=== PATIENT | male | born 1980 | race African-American/Black ===

== ENCOUNTER 2018-03-18 07:15 | Emergency (ER) | payer OTHER ==
[~2018-03-18] VITALS: Ht 198.1 cm; Wt 79.4 kg
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
[2018-03-18 07:51] VITALS: BP 108/76
[2018-03-18 08:29] VITALS: BP 108/76
== END 2018-03-18 08:31 | disposition left against medical advice (07) ==
LOC: EDBD 07:15 → EMR 07:55
DX: F15.10 Other stimulant abuse, uncomplicated (principal)
CPT/HCPCS: 99283

== ENCOUNTER 2018-06-01 13:39 | Emergency (ER) | payer OTHER ==
[~2018-06-01] VITALS: Ht 185.4 cm; Wt 81.6 kg
[~2018-06-01 13:39] MED LIST: UNOBMED
--- NOTE | 2018-06-01 13:43 | NUR ---
ED Nurse Note: Patient brought in by [id number] with [employer] from assisted lived [facility], c/o behavior complaint, appears to hear auditory hallucination because patient is talking by himself. Patient is alert and awake to his name and time, place. patient denies any SI/HI. follows direction at this time.
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
[2018-06-01 14:11] LABS: BASOPHILS % (AUTO) 1.2 % (0.0-2.0); EOSINOPHILS % (AUTO) 1.8 % (0.0-3.0); HEMATOCRIT 41.7 % (42.0-52.0); HEMOGLOBIN 13.4 G/DL (14.2-18.0); LYMPHOCYTES % (AUTO) 28.3 % (20.0-45.0); MEAN CORPUSCULAR VOLUME 91 FL (80-99); MONOCYTES % (AUTO) 11.2 % (1.0-10.0); NEUTROPHILS % (AUTO) 57.6 % (45.0-75.0); PLATELET COUNT 359 K/UL (150-450); RED BLOOD COUNT 4.56 M/UL (4.70-6.10); WHITE BLOOD COUNT 5.7 K/UL (4.8-10.8)
[2018-06-01 14:20] VITALS: BP 146/87
[2018-06-01 14:25] LABS: ANION GAP 8 mmol/L (5-15); BLOOD UREA NITROGEN 18 mg/dL (7-18); CALCIUM 9.3 MG/DL (8.5-10.1); CARBON DIOXIDE 27 MMOL/L (21-32); CHLORIDE 105 MMOL/L (98-107); CREATININE 1.2 MG/DL (0.55-1.30); POTASSIUM 3.7 MMOL/L (3.5-5.1); SODIUM 140 MMOL/L (136-145)
[2018-06-01] MEDS ORDERED: Haloperidol 5mg/ml Inj IM ONE (14:30)
[2018-06-01 14:32] LABS: ALANINE AMINOTRANSFERASE 30 U/L (12-78); ALBUMIN 3.5 G/DL (3.4-5.0); ALBUMIN/GLOBULIN RATIO 0.8 (1.0-2.7); ALKALINE PHOSPHATASE 108 U/L (46-116); ASPARTATE AMINO TRANSFERASE 30 U/L (15-37); BILIRUBIN,TOTAL 0.7 MG/DL (0.2-1.0)
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
[2018-06-01 15:33] LABS: APPEARANCE,URINE CLEAR; BILIRUBIN, URINE NEGATIVE (NEGATIVE); COLOR,URINE PALE YELLOW; GLUCOSE, URINE (UA) NEGATIVE (NEGATIVE); KETONES,URINE NEGATIVE (NEGATIVE); LEUKOCYTE ESTERASE ,URINE NEGATIVE (NEGATIVE); NITRITE,URINE NEGATIVE (NEGATIVE); PH,URINE 6.5 (4.5-8.0); PROTEIN,URINE 1+ (NEGATIVE); UROBILINOGEN,URINE NORMAL MG/DL (0.0-1.0)
--- NOTE | 2018-06-01 15:51 | NUR ---
ED Nurse Note: sitter by the bedside. patient is resting in bed covered with all blankets.
[2018-06-01 18:31] VITALS: BP 124/82
--- NOTE | 2018-06-01 19:08 | NUR ---
HAND-OFF: Report given to Javi ESTEBAN. patient stable in bed
--- NOTE | 2018-06-01 19:10 | NUR ---
ED Nurse Note: Received Pt and report from day shift. Knowing Pt is 5150 hold, sitter is on bedside. Pt is Asleep when visited, VSS.
[2018-06-01 21:00] VITALS: BP 120/86
[2018-06-01 21:30] VITALS: BP 120/86
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
== END 2018-06-01 21:30 ==
LOC: EDBD 13:39 → EMR 14:12
DX: F91.9 Conduct disorder, unspecified (principal); R44.0 Auditory hallucinations; R44.1 Visual hallucinations
CPT/HCPCS: 36415; 80053; 80307; 80329; 81003; 85025; 96372; 99284; J1630